=== PATIENT | female | born 1950 | race Caucasian/White ===

== ENCOUNTER 2017-11-13 14:30 | Outpatient (CLI) | payer OTHER ==
--- NOTE | 2017-11-14 16:15 | Mammography Report ---
Procedure Date: 11/13/2017 Accession Number: [id number] / [id number] Procedure: MGN - Screening Mammo Dig Bilat CPT Code: FULL RESULT: EXAM: Screening Mammo Dig Bilat DATE: 11/13/2017 2:47 PM CLINICAL HISTORY: 67 year-old nulliparous female presents for screening mammogram. TECHNIQUE: Bilateral CC and MLO views were obtained. COMPARISON: 02/03/2013, 01/31/2011, 09/27/2009, 03/23/2009. FINDINGS: The breasts demonstrate scattered fibroglandular densities bilaterally. There are coarse typically benign calcifications bilaterally. No suspicious masses, clustered microcalcifications, or regions of architectural distortion are identified. Visualization of the inframammary fold on the right MLO view is not adequate for technical reasons. IMPRESSION: Incomplete examination RECOMMENDATION: Additional evaluation as above. BIRADS CATEGORY 0: Incomplete examination STANDARD QUALIFYING STATEMENTS: 1. This examination was reviewed with the aid of Computer-Aided Detection (CAD). 2. A negative or benign imaging report should not delay biopsy if clinically suspicious findings are present. Consider surgical consultation if warrented. More than 5% of cancers are not identified by imaging. 3. Dense breasts may obscure an underlying neoplasm.
== END 2017-11-13 14:31 | disposition home or self-care (01) ==
LOC: DI.N 14:30
PROVIDERS: ATTEND Emergency Medicine Emergency Medical Services
DX: Z12.31 Encounter for screening mammogram for malignant neoplasm of breast (principal)
CPT/HCPCS: 77067

== ENCOUNTER 2017-11-16 15:21 | Outpatient (CLI) | payer OTHER ==
--- NOTE | 2017-11-27 10:34 | Mammography Report ---
Procedure Date: 11/16/2017 Accession Number: [id number] / [id number] Procedure: MGN - Screening Mammo Dig Bilat CPT Code: FULL RESULT: FINDINGS: IMPRESSION: For results, please reference the addended Screening Mammogram report from 11/13/2017.
--- NOTE | 2017-11-27 10:42 | Mammography Report ---
FINDINGS: IMPRESSION: For results, please reference the addended Screening Mammogram report from 11/13/2017. [facility]
== END 2017-11-16 15:22 | disposition home or self-care (01) ==
LOC: DI.N 15:21
PROVIDERS: ATTEND Emergency Medicine Emergency Medical Services
DX: Z12.31 Encounter for screening mammogram for malignant neoplasm of breast (principal)
CPT/HCPCS: 77067

== ENCOUNTER 2023-06-21 15:09 | Outpatient (CLI) | payer OTHER | END 2023-06-21 23:59 | disposition short-term general hospital (02) | LOC: EMS 15:09 | PROVIDERS: ATTEND Emergency Medicine | DX: S51.811A Laceration without foreign body of right forearm, initial encounter (principal); S61.511A Laceration without foreign body of right wrist, initial encounter; S69.91XA Unspecified injury of right wrist, hand and finger(s), initial encounter; W54.0XXA Bitten by dog, initial encounter | CPT/HCPCS: A0425; A0427 ==